=== PATIENT | female | born 1965 | race African-American/Black ===

== ENCOUNTER 2017-04-29 07:56 | Day surgery (SDC) | payer BC, OTHER ==
[2017-04-26 17:29] VITALS: BMI 24.4
[2017-04-29] MEDS ORDERED: MIDAZOLAM HCL 2 MG/2 ML SINGLE DOSE VIAL ONE (09:37)
[2017-04-29] MEDS ORDERED: LEVOFLOXACIN 500 MG IVPB 100 ML IVPB ONE (09:49)
[2017-04-29] MEDS ORDERED: LEVOFLOXACIN 500 MG PREMIX BAG IVPB ONE (09:49)
[2017-04-29] MEDS ORDERED: DEXAMETHASONE SOD PHOSPHATE 4 MG/1 ML VIAL ONE (09:58)
[2017-04-29] MEDS ORDERED: ONDANSETRON 4 MG/2 ML VIAL IVPUSH PRN (10:33)
[2017-04-29] MEDS ORDERED: PROMETHAZINE HCL 25 MG/1 ML VIAL IVPUSH PRN (10:33)
[2017-04-29] MEDS ORDERED: LACTATED RINGERS SOLUTION 1,000 ML IV SCH (10:45)
--- NOTE | 2017-04-29 10:47 | OP ---
Operative Note - Note: Operative Date: 04/29/17 Pre-Operative Diagnosis: recurrent bladder tumor Operation: transurethral resection and vaporization of bladder tumor utlizing PK system Findings: tumor and dyspasia involving right kelsey-trigone to posterior wall. Area greater than 8cm x 4cm Post-Operative Diagnosis: Same as Pre-op Surgeon: Arley Del Valle Anesthesia: General Operative Report Dictated: Yes
--- NOTE | 2017-04-29 11:20 | OP ---
DATE OF OPERATION: 04/29/2017 PREOPERATIVE DIAGNOSIS: Recurrent bladder tumor. POSTOPERATIVE DIAGNOSIS: Recurrent bladder tumor. PROCEDURE: Transurethral resection and vaporization of bladder tumor utilizing PlasmaKinetic bipolar system. ATTENDING: Luiz Connell MD ANESTHESIA: General. DESCRIPTION OF PROCEDURE: The patient was brought into the operating room and placed in a supine position on the operating room table. General anesthesia was administered. At this point, the patient was placed in the dorsal lithotomy position and prepped and draped in the usual sterile manner. At this point, cystoscopy was performed. A bladder tumor with dysplasia involving the right hemitrigone to posterior wall was identified. The right ureteral orifice was free of tumor. The rest of the bladder was free of dysplasia or tumor. At this point, utilizing the loupe element of the resectoscope, the tumor was resected. The patient has a history of bladder perforation due to a significant obturator reflex. Because of this, the tumor was vaporized rather than aggressively resected. The vaporization was commenced utilizing the button element of the resectoscope. This was done after all tumor fragments were removed utilizing the Ellik evacuator. Vaporization to the level of the deep muscle of the bladder was performed involving the posterior wall to the trigone. Part of the lateral wall was involved. The area was 8 cm x 5 cm in size. No complications were noted. The patient was left with a Novak catheter to straight drainage. The drainage was clear with no evidence of hematuria. The patient tolerated the procedure very well. The disposition of the patient was to the recovery room. LUIZ CONNELL M.D. [id number]
[2017-04-29 12:11] VITALS: TEMP 97.9
[2017-04-29 13:47] VITALS: BP 144/100; PULSE 8
--- NOTE | 2017-04-30 14:17 | PATH ---
Surgical Pathology Report Patient Name: ESTELA STEPHENSON [facility]. Rec. #: [id number] /Age/Gender: 1965 (Age: 51) / F Account: [id number] Location: [facility] Taken: 04/29/2017 Received: 04/29/2017 Reported: 04/30/2017 Physicians: Arley Del Valle Specimen(s) Received BLADDER TUMOR TURBT Clinical History Bladder tumor, low malignant potential 2 years ago Final Diagnosis BLADDER, TUMOR, TUR: NON-INVASIVE LOW GRADE PAPILLARY UROTHELIAL CARCINOMA. LAMINA PROPRIA INVASION: NOT IDENTIFIED. MUSCULARIS PROPRIA (DETRUSOR): NOT IDENTIFIED. CARCINOMA IN SITU (AMOL): NOT IDENTIFIED. Electronically Signed Vinayak Dos Santos M.D. Gross Description Received in formalin labeled "bladder tumor" is a 2.0 x 0.9 x 0.2 cm aggregate of reyes soft tissue fragments. The formalin is filtered and the specimen is entirely submitted in one cassette. 04/29/201704/29/2017
== END 2017-04-29 13:50 | disposition home or self-care (01) ==
LOC: JASU-SURG 07:56
PROVIDERS: ATTEND Urology
PROC: 0T5B8ZZ Destruction of Bladder, Via Natural or Artificial Opening Endoscopic (ICD-10-PCS; principal; 2017-04-29 09:00)
DX: C67.9 Malignant neoplasm of bladder, unspecified (principal)
CPT/HCPCS: 88307-TC; 94760